=== PATIENT | female | born 1995 | race Two or more races ===

== ENCOUNTER 2020-10-23 14:21 | Emergency (ER) | payer SELFPAY ==
[~2020-10-23] VITALS: Ht 160 cm; Wt 59.0 kg
--- NOTE | 2020-10-23 15:00 | NUR ---
PATIENT HERE FOR C/O RT FLANK PAIN. HX OF KIDNEY STONES. PATIENT ALERT AND ORIENTED X4 RESPIRATIONS EVEN AND UNLABORED. AWAITING MD OCONNELL.
--- NOTE | 2020-10-23 15:45 | NUR ---
PATIENT IN BED, RESTING. DENIES ANY DISTRESS AT THIS TIME. WILL CONTINUE TO MONITOR.
[2020-10-23 15:57] LABS: BASOPHILS % (AUTO) 0.1 % (0.0-2.0); HEMATOCRIT 38 % (33-45); HEMOGLOBIN 12.9 g/dL (11.5-14.8); LYMPHOCYTES # (AUTO) 0.4 K/uL (0.8-4.8); LYMPHOCYTES % (AUTO) 3.6 % (20.0-44.0); MEAN CORPUSCULAR HGB CONC 34 g/dl (31.0-36.0); MEAN CORPUSCULAR VOLUME 91 fL (82-100); MONOCYTES # (AUTO) 0.3 K/uL (0.1-1.30); MONOCYTES % (AUTO) 2.5 % (2.0-12.0); NEUTROPHILS # (AUTO) 9.6 K/uL (1.8-8.9); NEUTROPHILS % (AUTO) 93.8 % (43.0-81.0); PLATELET COUNT (AUTO) 199 K/uL (150-450); RED BLOOD CELL COUNT(AUTO) 4.19 MIL/uL (4.0-5.2); WHITE BLOOD COUNT (AUTO) 10.3 K/uL (4.3-11.0)
[2020-10-23] MEDS ORDERED: ONDANSETRON HCL/PF 4 MG/2 ML VIAL ONE (16:01)
[2020-10-23] MEDS ORDERED: MORPHINE SULFATE INJ 4 MG/ML DISP.SYRIN ONE (16:02)
[2020-10-23 16:10] LABS: BILIRUBIN,URINE NEGATIVE (NEGATIVE); COLOR,URINE YELLOW (YELLOW); LEUKOCYTE ESTERASE ,URINE NEGATIVE (NEGATIVE); NITRITE, URINE NEGATIVE (NEGATIVE); PROTEIN,URINE TRACE mg/dl (NEGATIVE); UGLUCOSE NEGATIVE (NEGATIVE)
[2020-10-23 16:12] LABS: PH,URINE >9.0 (5.0-8.0)
[2020-10-23] MEDS: MORPHINE SULFATE INJ 2 MG/ML DISP.SYRIN IV ONE (16:12)
[2020-10-23] MEDS: ONDANSETRON HCL/PF 4 MG/2 ML VIAL IVP ONE (16:13)
[2020-10-23] MEDS: IV NS 0.9% 1,000 ML BAG IV ONE (16:13)
[2020-10-23 16:28] LABS: ALBUMIN 4.3 g/dL (3.4-5.0); BILIRUBIN,DIRECT 0.2 mg/dL (0.0-0.2); BILIRUBIN,TOTAL 0.8 mg/dL (0.2-1.0); CALCIUM, SERUM 8.9 mg/dL (8.5-10.1); CREATININE 0.9 mg/dL (0.6-1.3); POTASSIUM 3.9 mmol/L (3.5-5.1); TOTAL PROTEIN, SERUM 7.3 g/dL (6.4-8.2)
[2020-10-23 17:10] LABS: BACTERIA,URINE 1+ /HPF (None Seen); SQUAMOUS EPITHELIAL CELL,UR Few /HPF (None Seen); URINE AMORPHOUS PHOSPHATES Moderate /HPF (None Seen); WBC,URINE 0-2 /HPF (0-3)
[2020-10-23] MEDS ORDERED: ONDA4TAB5 PO (17:46)
[2020-10-23] MEDS ORDERED: HYDR-4303 PO (17:46)
[2020-10-23] MEDS ORDERED: IBUP-1955 PO (17:46)
[2020-10-23] MEDS ORDERED: TAMS-12 PO (17:46)
--- NOTE | 2020-10-23 17:59 | NUR ---
Patient discharged to home in stable condition. Written and verbal after care instructions given. Patient verbalizes understanding of instruction.
[2020-10-23 18:00] VITALS: BP 112/70
== END 2020-10-23 18:01 | disposition home or self-care (01) ==
LOC: ER 14:24
DX: N20.9 Urinary calculus, unspecified (principal); Z79.899 Other long term (current) drug therapy
CPT/HCPCS: 36415; 76770; 80048; 80076; 81001; 83690; 84703; 85025; 96361; 96374; 96375; 99284; J2270; J2405; J7030